=== PATIENT | female | born 1975 | race Hispanic/Latino ===

== ENCOUNTER 2018-08-19 07:25 | Observation (INO) | payer OTHER ==
[2018-08-14 13:15] VITALS: BP 125/77
[2018-08-14 13:29] LABS: BASOPHILS % (AUTO) 0.7 % (0.0-5.0); EOSINOPHILS % (AUTO) 2.4 % (0.0-8.0); LYMPHOCYTES % (AUTO) 31.5 % (21.0-51.0); MEAN CORPUSCULAR HEMOGLOBIN 29.9 pg (27.0-33.0); MEAN CORPUSCULAR HGB CONC 33.5 g/dL (32.0-36.0); MEAN CORPUSCULAR VOLUME 89.1 fL (79-99); MONOCYTES % (AUTO) 6.3 % (3.0-13.0); NEUTROPHILS % (AUTO) 59.1 % (40.0-77.0); PLATELET COUNT (AUTO) 275 K/uL (130-400); RED BLOOD CELL COUNT(AUTO) 4.04 MIL/uL (4.00-5.50); RED CELL DISTRIBUTION WIDTH 13.5 % (11.0-15.5); WHITE BLOOD COUNT (AUTO) 6.7 K/uL (4.8-10.8)
[2018-08-14 13:38] LABS: CREATININE 0.7 mg/dL (0.5-1.5); POTASSIUM 3.8 mmol/L (3.5-5.1)
[2018-08-14] MEDS: CEFAZOLIN SODIUM 1 GM VIAL IVP SCH (14:45)
[2018-08-19] VITALS (17 sets, daily range): BP systolic 101–145; BP diastolic 58–82
[~2018-08-19] VITALS: Ht 167.6 cm; Wt 112.6 kg
[~2018-08-19 07:25] MED LIST: CALDOLOR 800MG+NS 250ML 250 ML IV SCH; LOSA25TA41 PO; METF-446 PO; MULT1TAB70 PO; VICTOZA SQ
[2018-08-19] MEDS ORDERED: SODIUM CHLORIDE 0.9% 1000ML 1,000 ML IV ONE (08:22)
[2018-08-19] MEDS ORDERED: BUPIVACAINE/PF 0.25% 30ML VIAL IJ ONE (08:54)
[2018-08-19] MEDS ORDERED: LIDOCAINE PF 2% 5ML ABBOJECT ONE (09:58)
[2018-08-19] MEDS ORDERED: LIDOCAINE HCL 4% LTA SOL 4 ML VIAL ONE (09:58)
[2018-08-19] MEDS ORDERED: ROCURONIUM 10MG/1ML SYR 10 MG/ML ML ONE ×2 (09:59→10:44)
[2018-08-19] MEDS ORDERED: MIDAZOLAM HCL 1 MG/ML 2ML VIAL ONE (09:59)
[2018-08-19] MEDS ORDERED: NEOSTIGMINE 5MG/5ML SYR IV ONE (09:59)
[2018-08-19] MEDS ORDERED: FENTANYL CITRATE PF 50 MCG/1 ML 2ML VIAL ONE ×2 (09:59→10:56)
[2018-08-19] MEDS ORDERED: GLYCOPYRROLATE 1 MG/5 ML SYRINGE ONE (09:59)
[2018-08-19] MEDS ORDERED: PROPOFOL 10 MG/ML 20ML VIAL IV ONE (09:59)
[2018-08-19] MEDS: CEFAZOLIN SODIUM 1 GM VIAL IVP SCH (10:30)
[2018-08-19] MEDS ORDERED: ONDANSETRON HCL 4 MG/2 ML VIAL ONE (11:36)
[2018-08-19] MEDS ORDERED: ACETAMINOPHEN-CODEINE 300/30MG TAB PO PRN (11:45)
[2018-08-19] MEDS ORDERED: MEPERIDINE 10MG/ML 50ML PCA 50 ML IV PRN (11:45)
[2018-08-19] MEDS ORDERED: CEFAZOLIN 3GM /D5W 100ML 100 ML IV SCH ×2 (11:45→17:00)
[2018-08-19] MEDS ORDERED: IBUPROFEN 600 MG TABLET PO PRN (11:45)
[2018-08-19] MEDS ORDERED: NALOXONE HCL 0.4 MG/1 ML ML IVP PRN (11:45)
[2018-08-19] MEDS ORDERED: PROMETHAZINE HCL 25 MG/ML 1ML AMPULE IM PRN ×4 (11:45→19:45)
[2018-08-19] MEDS ORDERED: BISACODYL 10 MG SUPP.RECT RC PRN (11:45)
[2018-08-19] MEDS ORDERED: MEPERIDINE-PF 25 MG/ML SYG ONE ×2 (12:20→12:29)
[2018-08-19] MEDS: SODIUM CHLORIDE 0.9% 1000ML 1,000 ML IV SCH ×2 (13:10→23:23)
--- NOTE | 2018-08-19 13:10 | NUR ---
ARRIVED PATIENT ARRIVED TO UNIT VIA BED FROM PACU. PATIENT ORIENTED TO ROOM.INCISION INTACT. CLAUDIO DRAIN DRAINING SANGUINOUS FLUID. SCDS APPLIED TO BILATERAL LOWER EXTREMITIES. CALL LIGHT LEFT IN REACH.
--- NOTE | 2018-08-19 13:50 | NUR ---
CASHIER RECEPTIONIST CASHIER RECEPTIONIST (DEMEROL) USE AND PURPOSE EXPLAINED TO PATIENT. PATIENT VERBALIZED UNDERSTANDING.
--- NOTE | 2018-08-19 15:55 | NUR ---
CLAUDOI 35 ML OF SANGUINOUS FLUID EMPTIED FROM CLAUDIO DRAIN.
[2018-08-19] MEDS: CALDOLOR 800MG+NS 250ML 250 ML IVPB SCH (17:35)
[2018-08-19] MEDS: CEFAZOLIN 3GM /D5W 100ML 100 ML IV SCH (18:49)
[2018-08-19] MEDS ORDERED: CALDOLOR 800MG+NS 250ML 250 ML IVPB SCH (19:45)
[2018-08-20] MEDS: CALDOLOR 800MG+NS 250ML 250 ML IVPB SCH (01:01)
[2018-08-20] MEDS: CEFAZOLIN 3GM /D5W 100ML 100 ML IV SCH (02:56)
[2018-08-20 03:44] VITALS: BP 104/69
--- NOTE | 2018-08-20 06:15 | NUR ---
zhu catheter removed, tip intact, pericare done, scant vag bleeding noted.applied abdominal binder. informed to call for assistance to the bathroom, pt voiced understanding Addendum: 08/20/18 at 0705 by MIRANDA HUTCHINSON RN Amended: Links added.
[2018-08-20 07:39] LABS: HEMATOCRIT 32.4 % (36-48); MEAN CORPUSCULAR HEMOGLOBIN 29.8 pg (27.0-33.0); MEAN CORPUSCULAR HGB CONC 32.8 g/dL (32.0-36.0); MEAN CORPUSCULAR VOLUME 90.8 fL (79-99); PLATELET COUNT (AUTO) 189 K/uL (130-400); RED BLOOD CELL COUNT(AUTO) 3.57 MIL/uL (4.00-5.50); RED CELL DISTRIBUTION WIDTH 13.5 % (11.0-15.5); WHITE BLOOD COUNT (AUTO) 5.4 K/uL (4.8-10.8)
[2018-08-20 07:47] VITALS: BP 104/65
--- NOTE | 2018-08-20 08:10 | NUR ---
MEDICATION VICTOZA NOT AVAILABLE IN PHARMACY. ADVISED PATIENT TO HAVE SOMEONE BRING MEDICATION FROM HOME. PATIENT STATES SHE WILL TELL HER .
[2018-08-20] MEDS: SIMETHICONE 80 MG TAB.CHEW PO PRN ×4 (08:58→21:03)
[2018-08-20] MEDS: DOCUSATE SODIUM 100 MG CAP PO PRN ×2 (08:58→21:03)
[2018-08-20] MEDS: METFORMIN HCL 500 MG TABLET PO SCH (08:58)
--- NOTE | 2018-08-20 08:58 | NUR ---
ALEXANDERZA PATIENT STATES SHE DOES NOT HAVE MEDICATION AT THIS TIME AND SHE WILL TAKE METFORMIN 100MG ONLY.
[2018-08-20] MEDS ORDERED: VICTOZA 1.8 MG SQ SCH (09:00)
[2018-08-20 11:34] VITALS: BP 114/72
[2018-08-20] MEDS ORDERED: IBUPROFEN 800 MG TAB PO SCH (11:45)
--- NOTE | 2018-08-20 11:50 | NUR ---
CLAUDIO DRAIN 5ML OF SANGUINOUS FLUID EMPTIED. CLAUDIO DRAIN REMOVED WITH TIP INTACT. GAUZE APPLIED TO SITE. ABDOMINAL BINDER APPLIED.
--- NOTE | 2018-08-20 11:55 | NUR ---
BI DATA ARCHITECT BI DATA ARCHITECT PUMP STOPPED AT THIS TIME. 20G IV REMOVED FROM RIGHT HAND.
--- NOTE | 2018-08-20 14:50 | NUR ---
REPORT REPORT RECEIVED FROM MAMI ROB FOR CONTINUITY OF CARE
--- NOTE | 2018-08-20 16:18 | NUR ---
ACTIVITY PT AMBULATED HALLWAY, STEADY GAIT, BELCHING BUT NO FLATUS YET, TOLERATING WELL, NO C/O PAIN NOR DIZZINESS, NOR FATIGUE
[2018-08-20 16:20] VITALS: BP 113/67
--- NOTE | 2018-08-20 16:46 | NUR ---
ACTIVITY PT AMBULATING HALLWAY, ACCOMPANIED BY FAMILY MEMBER, TOLERATING WELL, NO FLATUS YET
[2018-08-20 19:27] VITALS: BP 141/86
[2018-08-20] MEDS: IBUPROFEN 800 MG TAB PO SCH (20:29)
[2018-08-20 23:15] VITALS: BP 113/58
[2018-08-21] MEDS: SODIUM CHLORIDE 0.9% 1000ML 1,000 ML IV SCH ×2 (02:17→11:44)
[2018-08-21 03:58] VITALS: BP 111/54
[2018-08-21] MEDS: IBUPROFEN 800 MG TAB PO SCH ×2 (04:01→12:14)
[2018-08-21 07:38] VITALS: BP 119/68
[2018-08-21] MEDS: SIMETHICONE 80 MG TAB.CHEW PO PRN ×2 (08:55→12:13)
[2018-08-21] MEDS: DOCUSATE SODIUM 100 MG CAP PO PRN (08:55)
[2018-08-21] MEDS: METFORMIN HCL 500 MG TABLET PO SCH (08:55)
--- NOTE | 2018-08-21 09:30 | NUR ---
INCENTIVE SPIROMETER EDUCATED PATIENT ON INCENTIVE SPIROMETER. SATISFACTORY PATIENT TEACH BACK UTILIZED. MAX VOLUME 2000ML. ADVISED PATIENT TO CONTINUE AMBULATING IN HALLWAY.
[2018-08-21 11:05] VITALS: BP 114/66
--- NOTE | 2018-08-21 12:30 | NUR ---
INSTRUCTIONS DISCHARGE INSTRUCTIONS READ AND EXPLAINED TO PATIENT. REEDUCATED PATIENT ON INCISION CARE, TO CONTINUE INCENTIVE SPIROMETER AND TO REPORT ANY HIGH GRADE TEMPERATURES. PATIENT STATES SHE WILL BE MONITORING TEMPS AT HOME. PRESCRIPTION FOR TYLENOL #3, SURFAK, AND MOTRIN 800MG HANDED TO PATIENT. QUESTIONS INVITED AND ANSWERED. PATIENT VOICED UNDERSTANDING.
--- NOTE | 2018-08-21 12:40 | NUR ---
DISCHARGE PATIENT LEFT UNIT VIA WHEELCHAIR WITH ACCOMPANIED BY FAMILY. PERSONAL VEHICLE USED FOR TRANSPORTATION. NO COMPLAINTS OR CONCERNS ADDRESSED.
== END 2018-08-21 12:40 | disposition home or self-care (01) ==
LOC: DAH 07:25 → WSH 07:26 → DAH 07:26 → WSH 13:05
DX: K66.0 Peritoneal adhesions (postprocedural) (postinfection) (principal); N83.8 Other noninflammatory disorders of ovary, fallopian tube and broad ligament; Z82.49 Family history of ischemic heart disease and other diseases of the circulatory system; Z83.3 Family history of diabetes mellitus; Z79.899 Other long term (current) drug therapy
CPT/HCPCS: 36415 ×2; 58662; 80048; 82948 ×10; 85025; 85027; 86850; 86900; 86901; 88305; 96365; 96366 ×2; 96367; 96368; 96372; A4215; A4344; A4600; A4649; C1769 ×2; G0168; G0378 ×44; J0690 ×2; J1741 ×3; J2001; J2175 ×3; J2250; J2405; J2550; J2704; J2710; J3010 ×2; J3490; J7030 ×3

== ENCOUNTER 2023-02-09 17:53 | Emergency (ER) | payer BC, OTHER ==
[~2023-02-09] VITALS: Ht 167.6 cm; Wt 108.0 kg
[~2023-02-09 17:53] MED LIST changes: -CALDOLOR 800MG+NS 250ML 250 ML IV SCH; +MULT-660 PO; -MULT1TAB70 PO
[2023-02-09 18:33] LABS: BASOPHILS # (AUTO) 0.04 K/uL (0.00-0.20); BASOPHILS % (AUTO) 0.6 % (0.0-5.0); EOSINOPHILS # (AUTO) 0.11 K/uL (0.00-0.70); EOSINOPHILS % (AUTO) 1.5 % (0.0-8.0); HEMATOCRIT 40.4 % (36-48); IMMATURE GRANULOCYTE ABSOLUTE 0.03 K/uL (0-1); LYMPHOCYTES # (AUTO) 2.2 K/uL (1.0-4.8); MEAN CORPUSCULAR HEMOGLOBIN 29.9 pg (27.0-33.0); MEAN CORPUSCULAR HGB CONC 33.7 g/dL (32.0-36.0); MEAN CORPUSCULAR VOLUME 88.8 fL (79-99); MONOCYTES # (AUTO) 0.4 K/uL (0.1-1.0); MONOCYTES % (AUTO) 5.1 % (3.0-13.0); NEUTROPHILS # (AUTO) 4.4 K/uL (1.8-7.7); NEUTROPHILS % (AUTO) 61.4 % (40.0-77.0); PLATELET COUNT (AUTO) 265 K/uL (130-400); RED BLOOD CELL COUNT(AUTO) 4.55 MIL/uL (4.00-5.50); RED CELL DISTRIBUTION WIDTH 12.7 % (11.0-15.5); WHITE BLOOD COUNT (AUTO) 7.2 K/uL (4.8-10.8)
[2023-02-09 18:45] LABS: CREATININE 0.7 mg/dL (0.5-1.5); POTASSIUM 3.5 mmol/L (3.5-5.1)
[2023-02-09 18:54] LABS: ALBUMIN 3.8 g/dL (3.5-5.0); BILIRUBIN,TOTAL 0.4 mg/dL (0.2-1.0); TOTAL PROTEIN, SERUM 8.3 g/dL (6.0-8.3)
[2023-02-09 19:48] VITALS: BP 153/81; PULSE 85; RESP 18; O2SAT 98
== END 2023-02-09 22:03 | disposition home or self-care (01) ==
LOC: EDH 17:53
DX: R07.89 Other chest pain (principal); E11.9 Type 2 diabetes mellitus without complications; E78.00 Pure hypercholesterolemia, unspecified; I10 Essential (primary) hypertension; Z79.899 Other long term (current) drug therapy
CPT/HCPCS: 36415; 71045; 80053; 84484; 85025; 93005